=== PATIENT | female | born 2000 | race Caucasian/White ===

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

== ENCOUNTER → 2022-01-11 | Outpatient (CLI) | payer BC, MEDICAID ==
[2022-01-11 11:43] LABS: BASOPHILS % (AUTO) 1 % (0-10); EOSINOPHILS % (AUTO) 1 % (0-10); HEMATOCRIT 43 % (35-52); HEMOGLOBIN 15.1 g/dL (11.5-16.0); LYMPHOCYTES # (AUTO) 0.6 10^3/uL (1.0-4.0); LYMPHOCYTES % (AUTO) 24 % (12-44); MEAN CORPUSCULAR HEMOGLOBIN 34 pg (25-34); MEAN CORPUSCULAR HGB CONC 35 g/dL (32-36); MEAN CORPUSCULAR VOLUME 98 fL (80-99); MEAN PLATELET VOLUME 9.3 fL (9.0-12.2); MONOCYTES # (AUTO) 0.2 10^3/uL (0.0-1.0); MONOCYTES % (AUTO) 10 % (0-12); NEUTROPHILS # (AUTO) 1.5 10^3/uL (1.8-7.8); NEUTROPHILS % (AUTO) 64 % (42-75); PLATELET COUNT 323 10^3/uL (130-400); WHITE BLOOD COUNT 2.3 10^3/uL (4.3-11.0)
[2022-01-11 13:30] LABS: BILIRUBIN,TOTAL 0.3 MG/DL (0.1-1.0); BUN/CREATININE RATIO 16; CALCIUM 9.4 MG/DL (8.5-10.1); CARBON DIOXIDE 20 MMOL/L (21-32); CHLORIDE 102 MMOL/L (98-107); CREATININE SERUM 0.74 MG/DL (0.60-1.30); GFR ESTIMATED 119; GLUCOSE 114 MG/DL (70-105); POTASSIUM 4.2 MMOL/L (3.6-5.0); SODIUM 136 MMOL/L (135-145)
[2022-01-11 13:31] LABS: ALANINE AMINOTRANSFERASE 19 U/L (0-55); ALBUMIN 4.8 GM/DL (3.2-4.5); ALKALINE PHOSPHATASE 117 U/L (40-136); TOTAL PROTEIN 7.7 GM/DL (6.4-8.2)
[2022-01-11 15:02] LABS: TRIGLYCERIDES 83 MG/DL (<150); VLDL CHOLESTEROL 17 MG/DL (5-40)
[2022-01-11 15:07] LABS: CHOLESTEROL 254 MG/DL (< 200); HDL CHOLESTEROL 54 MG/DL (40-60)
== END ==
LOC: LAB FS 11:15
PROVIDERS: ATTEND Registered Nurse Emergency
DX: Z00.00 Encounter for general adult medical examination without abnormal findings (principal); E03.9 Hypothyroidism, unspecified
CPT/HCPCS: 36415; 80053; 80061; 84443; 85025

== ENCOUNTER → 2022-02-05 | Outpatient (CLI) | payer BC, MEDICAID ==
[2022-02-05 21:30] LABS: ABSOLUTE RETIC # 44 10e9/uL (24-90); BASOPHILS % (AUTO) 2 % (0-10); EOSINOPHILS % (AUTO) 1 % (0-10); HEMATOCRIT 44 % (35-52); HEMOGLOBIN 14.7 g/dL (11.5-16.0); LYMPHOCYTES # (AUTO) 0.5 10^3/uL (1.0-4.0); LYMPHOCYTES % (AUTO) 26 % (12-44); MEAN CORPUSCULAR HEMOGLOBIN 34 pg (25-34); MEAN CORPUSCULAR HGB CONC 34 g/dL (32-36); MEAN CORPUSCULAR VOLUME 101 fL (80-99); MONOCYTES # (AUTO) 0.2 10^3/uL (0.0-1.0); MONOCYTES % (AUTO) 12 % (0-12); NEUTROPHILS # (AUTO) 1.1 10^3/uL (1.8-7.8); NEUTROPHILS % (AUTO) 60 % (42-75); PLATELET COUNT 288 10^3/uL (130-400); RETICULOCYTE % 1.02 % (0.50-2.40); WHITE BLOOD COUNT 1.9 10^3/uL (4.3-11.0)
[2022-02-05 21:59] LABS: EOSINOPHILS % (MANUAL) 1 %; LYMPHOCYTES % (MANUAL) 44 %; MONOCYTES % (MANUAL) 7 %; NEUTROPHILS % (MANUAL) 48 %; RBC MORPH NORMAL
== END ==
LOC: LAB FS 14:58
PROVIDERS: ATTEND Registered Nurse Emergency
DX: D70.9 Neutropenia, unspecified (principal)
CPT/HCPCS: 36415; 85007; 85027; 85045; 85055

== ENCOUNTER → 2022-05-15 | Outpatient (CLI) | payer BC, MEDICAID ==
[2022-05-15 16:12] LABS: ABSOLUTE RETIC # 57 10e9/uL (24-90); BASOPHILS % (AUTO) 2 % (0-10); EOSINOPHILS % (AUTO) 1 % (0-10); HEMATOCRIT 38 % (35-52); HEMOGLOBIN 13.7 g/dL (11.5-16.0); LYMPHOCYTES # (AUTO) 0.5 10^3/uL (1.0-4.0); LYMPHOCYTES % (AUTO) 26 % (12-44); MEAN CORPUSCULAR HEMOGLOBIN 34 pg (25-34); MEAN CORPUSCULAR HGB CONC 36 g/dL (32-36); MEAN CORPUSCULAR VOLUME 94 fL (80-99); MEAN PLATELET VOLUME 9.1 fL (9.0-12.2); MONOCYTES # (AUTO) 0.2 10^3/uL (0.0-1.0); MONOCYTES % (AUTO) 10 % (0-12); NEUTROPHILS # (AUTO) 1.1 10^3/uL (1.8-7.8); NEUTROPHILS % (AUTO) 62 % (42-75); PLATELET COUNT 278 10^3/uL (130-400); RETICULOCYTE % 1.41 % (0.50-2.40); WHITE BLOOD COUNT 1.8 10^3/uL (4.3-11.0)
[2022-05-15 18:05] LABS: BAND NEUTROPHILS 1 %; BASOPHILS % (MANUAL) 0 %; EOSINOPHILS % (MANUAL) 0 %; LYMPHOCYTES % (MANUAL) 27 %; MONOCYTES % (MANUAL) 9 %; NEUTROPHILS % (MANUAL) 59 %
[2022-05-15 18:06] LABS: ATYPICAL LYMPHOCYTES 4 %
== END ==
LOC: LAB FS 15:46
PROVIDERS: ATTEND Student in an Organized Health Care Education/Training Program
DX: D69.6 Thrombocytopenia, unspecified (principal); D68.0 Von Willebrand disease
CPT/HCPCS: 36415; 85007; 85027; 85045; 85055